=== PATIENT | female | born 1955 | race Caucasian/White ===

== ENCOUNTER 2025-05-05 10:40 | Inpatient (IN) ==
[2025-05-05] MEDS: fentaNYL 100 MCG/2 ML VIAL IV ONE ×3 (10:56→13:37)
[2025-05-05 11:12] LABS: Basophils # (Auto) 0.03 K/mcL (0.00-0.30); Basophils % (Auto) 0.3 % (0.0-2.0); Eosinophils # (Auto) 0.06 K/mcL (0.00-0.70); Eosinophils % (Auto) 0.6 % (0.0-7.0); Hematocrit 37.3 % (34.1-44.9); Hemoglobin 12.7 g/dL (11.2-15.7); Lymphocytes # (Auto) 3.90 K/mcL (1.50-4.80); Lymphocytes % (Auto) 41.5 % (15.5-49.0); Mean Corpuscular HGB Conc 34.0 g/dL (31.0-36.0); Monocytes # (Auto) 0.59 K/mcL (0.10-0.90); Monocytes % (Auto) 6.3 % (1.0-12.0); Neutrophils % (Auto) 51.1 % (38.0-78.0); Platelet Count 324 K/mcL (140-440); RBC 4.18 M/mcL (3.59-5.38); WBC 9.4 K/mcL (4.5-11.0)
[2025-05-05 11:42] LABS: ALT/SGPT 19 U/L (<40); AST/SGOT 27 U/L (<32); Albumin 4.6 gm/dL (3.2-5.2); Albumin/Globulin Ratio 1.7 (1.0-2.3); Alkaline Phosphatase 85 U/L (39-117); Anion Gap 12.0 (8.0-16.0); Bilirubin,Total 0.4 mg/dL (0.1-1.0); Blood Urea Nitrogen 15 mg/dL (8-23); Calcium 9.6 mg/dL (8.6-10.4); Carbon Dioxide 24 mmol/L (22-30); Chloride 102 mmol/L (96-108); Globulin 2.7 gm/dL (2.2-3.7); Glucose 106 mg/dL (70-105); Potassium 4.2 mmol/L (3.3-5.1); Sodium 138 mmol/L (133-145)
[2025-05-05] MEDS ORDERED: ACETAMINOPHEN 500 MG TABLET PO PRN (14:12)
[2025-05-05] MEDS ORDERED: MAGNESIUM HYDROXIDE 30 ML ORAL.SUSP PO PRN (14:12)
[2025-05-05] MEDS: HYDROmorphone 0.5 MG/0.5 ML SYRINGE IV PRN (14:22)
[2025-05-05] MEDS: 0.9 % SODIUM CHLORIDE 1,000 ML IV SCH (14:26)
[2025-05-05] MEDS: ONDANSETRON 4 MG/2 ML VIAL IV PRN (15:05)
[2025-05-05] MEDS: fentaNYL 100 MCG/2 ML VIAL IV PRN (16:26)
[2025-05-05] MEDS: PROCHLORPERAZINE 10 MG/2 ML VIAL IV PRN (16:26)
[2025-05-05] MEDS: 0.9 % SODIUM CHLORIDE 10 ML SYRINGE IV SCH (16:27)
[2025-05-05] MEDS: ACETAMINOPHEN 1,000 MG/100 ML BAG IV SCH (16:40)
[2025-05-05] MEDS: LIDOCAINE 4% TOP PATCH TOPICAL SCH (16:41)
[2025-05-05] MEDS: METHOCARBAMOL 500 MG TABLET PO PRN (20:13)
[2025-05-05] MEDS: SENNOSIDES 1 TABLET PO SCH (20:14)
[2025-05-06] MEDS ORDERED: PROPOFOL 200 MG/20 ML VIAL IV ONE (07:03)
[2025-05-06] MEDS ORDERED: fentaNYL 100 MCG/2 ML VIAL ONE (07:03)
[2025-05-06] MEDS ORDERED: SUGAMMADEX SODIUM 200 MG/2 ML VIAL IV ONE (07:03)
[2025-05-06] MEDS ORDERED: GLYCOPYRROLATE 0.2 MG/ML VIAL IV ONE (07:05)
[2025-05-06] MEDS ORDERED: DEXAMETHASONE 10 MG/ML VIAL ONE (07:05)
[2025-05-06] MEDS ORDERED: ONDANSETRON 4 MG/2 ML VIAL ONE (07:05)
[2025-05-06] MEDS ORDERED: LIDOCAINE 2% PF 5 ML VIAL ONE (07:05)
[2025-05-06] MEDS ORDERED: PHENYLephrine 1 MG/10 ML SYRINGE (ANEST) ONE (07:05)
[2025-05-06] MEDS ORDERED: ROCURONIUM 10 MG/ML ML IV ONE (07:05)
[2025-05-06] MEDS ORDERED: TRANEXAMIC ACID 1,000 MG/10 ML VIAL ONE (07:08)
[2025-05-06] MEDS: ceFAZolin 2 GM in DEXTROSE 5% IN WATER 50 ML IV SCH (07:29)
[2025-05-06] MEDS ORDERED: FAMOTIDINE/PF 20 MG/2 ML VIAL IV ONE (08:00)
[2025-05-06] MEDS ORDERED: 0.9 % SODIUM CHLORIDE 100 ML IV ONE (08:29)
[2025-05-06] MEDS ORDERED: DEXMEDETOMIDINE HCL 200 MCG/2 ML VIAL ONE (08:29)
[2025-05-06] MEDS ORDERED: HYDROmorphone 0.5 MG/0.5 ML SYRINGE ONE (08:44)
[2025-05-06] MEDS ORDERED: fentaNYL 100 MCG/2 ML VIAL IV PRN (08:51)
[2025-05-06] MEDS ORDERED: BENZOCAINE/MENTHOL 1 LOZENGE PO PRN (08:51)
[2025-05-06] MEDS ORDERED: IPRATROPIUM/ALBUTEROL 3 ML AMPUL.NEB NEB PRN (08:51)
[2025-05-06] MEDS ORDERED: ePHEDrine 50 MG/5 ML SYRINGE (ANEST) IV ONE (09:10)
[2025-05-06] MEDS ORDERED: METHOCARBAMOL 750 MG TABLET PO PRN (09:24)
[2025-05-06] MEDS ORDERED: FLEETS ADULT 1 DOSE ENEMA PR PRN (09:24)
[2025-05-06] MEDS ORDERED: MAGNESIUM HYDROXIDE 30 ML ORAL.SUSP PO PRN (09:24)
[2025-05-06] MEDS ORDERED: ONDANSETRON 4 MG ODT TABLET SL PRN (09:24)
[2025-05-06] MEDS ORDERED: BISACODYL 10 MG SUPP.RECT PR PRN (09:24)
[2025-05-06] MEDS ORDERED: HYDROcodone/APAP 10/325MG TABLET PO PRN (09:24)
[2025-05-06] MEDS ORDERED: ONDANSETRON 4 MG/2 ML VIAL IV PRN (09:24)
[2025-05-06] MEDS ORDERED: POLYETHYLENE GLYCOL 3350 17 GM PACKET PO PRN (09:24)
[2025-05-06] MEDS: MELOXICAM IL ONE (09:40)
[2025-05-06] MEDS: BUPIVACAINE IL ONE (09:40)
[2025-05-06] MEDS: TRANEXAMIC ACID 1,000 MG/10 ML VIAL IV SCH (10:07)
[2025-05-06] MEDS: METHOCARBAMOL 1,000 MG/10 ML VIAL IV PRN (10:13)
[2025-05-06] MEDS: ONDANSETRON 4 MG/2 ML VIAL IV PRN (10:24)
[2025-05-06] MEDS: 0.9 % SODIUM CHLORIDE 1,000 ML IV SCH (11:00)
[2025-05-06] MEDS: BENZOCAINE/MENTHOL 1 LOZENGE PO PRN (13:14)
[2025-05-06] MEDS: 0.9 % SODIUM CHLORIDE 10 ML SYRINGE IV SCH (16:02)
[2025-05-06] MEDS: LACTATED RINGERS 1,000 ML IV SCH (18:54)
[2025-05-06] MEDS: [UNRECOGNIZED DRUG - OTHER] TOPICAL ONE (18:55)
[2025-05-06] MEDS ORDERED: SENNOSIDES 1 TABLET PO SCH (21:00)
[2025-05-06] MEDS: DOCUSATE SODIUM 100 MG CAPSULE PO SCH (21:52)
[2025-05-06] MEDS: ASPIRIN 81 MG TAB.CHEW CHEWED SCH (21:54)
[2025-05-06] MEDS: MELATONIN 3 MG TABLET PO PRN (21:54)
[2025-05-07] MEDS: ACETAMINOPHEN 500 MG TABLET PO PRN (03:39)
[2025-05-07] MEDS: KETOROLAC 15 MG/ML VIAL IV PRN (03:39)
[2025-05-07 06:07] LABS: Hematocrit 29.6 % (34.1-44.9); Hemoglobin 10.0 g/dL (11.2-15.7)
[2025-05-07 11:39] VITALS: TEMP 98.4; O2SAT 99
== END 2025-05-07 11:23 | disposition home or self-care (01) | DRG 522 ==
LOC: ED 10:40 → MEDSUR 13:55 → UNDODISIN 05-07 08:31
PROVIDERS: ADMIT Internal Medicine; ATTEND Internal Medicine